=== PATIENT | male | born 1955 | race African-American/Black ===

== ENCOUNTER 2021-04-14 14:41 | Emergency (ER) | payer OTHER ==
[~2021-04-14] VITALS: Ht 180.3 cm; Wt 90.7 kg
[2021-04-14 14:45] VITALS: BP 123/64
[2021-04-14 15:28] VITALS: BP 123/64
--- NOTE | 2021-04-14 15:28 | NUR ---
Patient discharged with v/s stable. Written and verbal after care instructions given and explained. Patient alert, oriented and verbalized understanding of instructions. Police with in custody. All questions addressed prior to discharge. ID band removed. Patient advised to follow up with PMD.NO Rx given. Patient educated on indication of medication including possible reaction and side effects. Opportunity to ask questions provided and answered.
== END 2021-04-14 15:28 ==
LOC: MED 14:41
DX: Z02.89 Encounter for other administrative examinations (principal); M06.9 Rheumatoid arthritis, unspecified; V89.2XXA Person injured in unspecified motor-vehicle accident, traffic, initial encounter; Y93.89 Activity, other specified; Y92.410 Unspecified street and highway as the place of occurrence of the external cause; Y99.8 Other external cause status
CPT/HCPCS: 99283